=== PATIENT | male | born 1960 | race Caucasian/White ===

== ENCOUNTER → 2021-04-20 | Outpatient (CLI) | payer BC ==
[~2021-04-20] MED LIST: BUSP10TA PO; ESCITALOPRAM OX10 MG PO; GADOTERATE 7.5 MMOL/15ML VIAL. IVP ONE; INSU100V6 SQ; INSU100V8 SQ; LISI20TA18 PO; RIZA10TA PO
--- NOTE | 2021-04-20 17:08 | KCIC ---
MRA of the brain without contrast 04/20/2021 Clinical History: Postconcussion syndrome. Dizziness and giddiness. Technique: Unenhanced T1-weighted sagittal and FLAIR and diffusion-weighted axial images of the brain were obtained. Using 3-D time of flight techniques, a MRA of the major arterial structures surroundi ng the [place] was performed. 3-D MIP reconstructed images were obtained. Findings: The ventricles and sulci are within normal limits in size and configuration. Patchy and sev eral small focal areas of increased signal intensity are seen within the periventricular and subcorti ariadna white matter of both cerebral hemispheres on the FLAIR images consistent with areas of very mild small vessel ischemic disease. No area of restricted diffusion is seen to suggest evidence of acute i schemia/infarction. MRA images of the anterior and posterior circulations are within normal limits. No area of stenosis o r occlusion is seen. No intracranial aneurysm is seen. Impression: Negative study. Electronically signed by: Papito Saldivar MD (04/20/2021 5:06 PM) [id number]
--- NOTE | 2021-04-20 17:12 | KCIC ---
MRA of the Neck without and with Contrast 04/20/2021 Clinical History: Dizziness and headaches. Postconcussion syndrome. Giddiness. Technique: Using 2D time of flight techniques, a MRA of the carotid and verterbral arterial structure s within the neck was performed. After the dynamic intravenous administration of 15 cc of Clariscan, enhanced, 3D time of flight coronal images of the neck and upper chest were obtained. 3D MIP images were generated in multiple projections for a MRA. Findings: The origins of the brachiocephalic, left common carotid and left subclavian arteries from t he thoracic aortic arch are within normal limits. The origin of the right common carotid and both claudia tebral arteries are within normal limits. The common carotid arteries, carotid bifurcations, and internal carotid arteries are within normal li mits. No hemodynamically significant stenosis or area of occlusion is seen. The vertebral arteries are codominant. Both vertebral arteries demonstrate normal antegrade flow. No area stenosis or occlusion is seen. Impression: Negative study. Stenosis calculation for MRA are based on measurement of the distal internal carotid artery diameter in accordance with the NASCET methodology. Electronically signed by: Papito Saldivar MD (04/20/2021 5:10 PM) [id number]
== END ==
LOC: KCIC MRI 14:01
PROVIDERS: ATTEND Nurse Practitioner Family
DX: S09.90XS Unspecified injury of head, sequela (principal); G93.89 Other specified disorders of brain; F07.81 Postconcussional syndrome; R42 Dizziness and giddiness; X58.XXXS Exposure to other specified factors, sequela
CPT/HCPCS: 70544; 70549; A9575